=== PATIENT | female | born 1985 | race Caucasian/White ===

== ENCOUNTER 2017-05-27 13:34 | Emergency (ER) | payer SELFPAY, MEDICAID | END 2017-05-27 16:00 | disposition left against medical advice (07) | LOC: E/R 13:34 | DX: Z53.21 Procedure and treatment not carried out due to patient leaving prior to being seen by health care provider (principal) ==

== ENCOUNTER 2017-06-17 17:40 | Emergency (ER) | payer SELFPAY | END 2017-06-17 20:09 | disposition left against medical advice (07) | LOC: E/R 20:09 | DX: Z53.21 Procedure and treatment not carried out due to patient leaving prior to being seen by health care provider (principal) ==